=== PATIENT | male | born 1955 | race Caucasian/White ===

== ENCOUNTER 2024-08-30 06:17 | Day surgery (SDC) | payer MEDICARE, BC, SELFPAY | END 2024-08-30 11:04 | disposition home or self-care (01) | LOC: GI 06:17 | PROVIDERS: ATTENDING PHYSICIAN Internal Medicine Gastroenterology | DX: Z12.11 Encounter for screening for malignant neoplasm of colon (principal); K51.00 Ulcerative (chronic) pancolitis without complications; Z98.0 Intestinal bypass and anastomosis status | CPT/HCPCS: 45331; 88305 ==

== ENCOUNTER 2025-01-22 18:03 | Inpatient (IN) | payer MEDICARE, BC, SELFPAY ==
[2025-01-22 15:32] VITALS: BP 131/76
[2025-01-22 15:56] LABS: % Basophils 0.8 % (0-2); % Eosinophils 17.4 % (0-6); % Immature Granulocytes 0.8 % (0-0.5); % Lymphocytes 20.4 % (20.5-51.1); % Monocytes 15.1 % (1.7-9.3); % Neutrophils 45.5 % (42.2-75.2); Absolute Basophils 0.1 10^3/uL (0-0.2); Absolute Eosinophils 1.3 10^3/uL (0-0.7); Absolute Immature Granulocytes 0.1 10^3/uL (0-0.05); Absolute Lymphocytes 1.6 10^3/uL (1.2-3.4); Absolute Monocytes 1.2 10^3/uL (0.1-0.6); Absolute Neutrophils 3.5 10^3/uL (1.4-6.5); Hematocrit 37.1 % (39.0-52.0); Hemoglobin 12.4 g/dL (13.0-18.0); Mean Corp Hgb Conc. 33.4 g/dL (33.0-37.0); Mean Corpuscular Hgb 30.1 pg (27.0-31.0); Mean Platelet Volume 9.5 fL (7.4-10.4); Nucleated Red Blood Cells % 0 % (-); Platelet Count 193 10^3/uL (130-400); Red Blood Cell Count 4.12 10^6/uL (4.70-6.10); Red Cell Dist. Width 14.8 % (11.5-14.5); White Blood Cell Count 7.7 10^3/uL (4.8-10.8)
[2025-01-22 16:14] LABS: Albumin 3.3 g/dl (3.5-5.0); Alkaline Phosphatase 147 U/L (38-126); Blood Urea Nitrogen 31 mg/dl (9-20); Calcium 9.1 mg/dl (8.4-10.2); Carbon Dioxide 23 mmol/L (22-30); Chloride 108 mmol/L (98-107); Glucose 93 mg/dl (70-99); Lipase 182 U/L (23-300); Potassium 4.1 mmol/L (3.5-5.1); Sodium 138 mmol/L (135-145); Total Bilirubin 2.7 mg/dl (0.2-1.3); Total Protein 7.8 g/dl (6.3-8.2); eGFR 55.09
[2025-01-22 16:27] LABS: ALT (SGPT) 1223 U/L (0-50); AST (SGOT) 1004 U/L (17-59)
--- NOTE | 2025-01-22 16:47 | W.PN.UPDATE ---
Update Note
Progress Note Update
This note serves as an addendum to the H&P by author's agent EMILIE Yael LANCASTER
HPI
69M HX chronic abn LFTS, HX chr Levofloxacin for pouchitis, HX UC with internal J Pouch s/p colectomy , Lichen planus seen in by GI for abnomal LFTS
- worsening abnormal LFTs trend
- most recently abdominal bloating and heart burn but resolved
- no new medication except prolia started last fall
- denied any acetaminophen
- denied ETOH
- for further w/u
Vital Signs
Temp Pulse Resp BP Pulse Ox
98.3 F 63 16 131/76 98
01/22/25 15:32 01/22/25 15:32 01/22/25 15:32 01/22/25 15:32 01/22/25 15:32
PE
Gen: Not toxic , appprpriate
HEENT: acidemic sclera
Neck: supple
Lungs:CTA
Cor: RRR S1 S2
Abdomen: soft abdomen
DISTRIBUTION DESIGNER: AAO3
MS: no edema
Psych: normal mood and affect
Data
Labs
01/22/25
15:46
WBC 7.7
Hgb 12.4 L
MCV 90.0
Chloride 108 H
BUN 31 H
Creatinine 1.4 H
eGFR 55.09
Total Bilirubin 2.7 H
ALT 1223 H*
Alkaline Phosphatase 147 H
Lipase 182
NO PRIOR hospitalist admission:
ASSESSMENT & PLAN
Significant progressive worsening of painless hepatocellular pattern abn LFTs with new interval elevated TB
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
- Unclear etiology and DDXs such as DILI, autoimmune hepatitis ,PVT, acute viral hepatitis are soft
- Prothrombin time
- Viral Hep panel
- Mitochondrial M2 Ab, IgG
- Soluble Liver Ag
- close observation of LFTs and INR
- Complete abdomen US with Doppler study
- MRI of liver
- GI consulted
- HX chr Levofloxacin for 20 yrs for pouchitis
- HX UC with internal J Pouch s/p total colectomy
- cont. LVQ for now and observe LFTs
Essential HTN
- cont. Valsartan- HCTZ to hold if SBP < 120
- c/w Metoprolol
DVT Px: SCD
Code: full code
IP MS
--- NOTE | 2025-01-22 16:48 | ED.GENMED ---
History of Present Illness
<Addis Plummer PA-C - Last Filed: 01/23/25 03:12>
General
Chief Complaint: Abnormal Lab Value
Source: patient
Exam Limitations: none
Time Seen by Provider: 01/22/25 16:35
Nursing documentation reviewed up to this point in time: agreed with
History of Present Illness
History of Present Illness:
Patient is a 69-year-old male with history hypertension, UC status post J-pouch presenting to the emergency department for evaluation of elevated liver function test found outpatient. Patient states that he initially had lab work drawn with his
annual physical back in October which showed very mild elevation his LFTs. These values were trended over the past 2 months with his GI doctor, Dr. Benitez and have been continuing to elevate. Patient was sent to the emergency department from GI
for admission and further workup.
Patient reports feeling increasing fatigue over the past few months and has had blunger stools over the past few weeks. Patient denies any recent fever, chills, abdominal pain, nausea, vomiting or anorexia. No chest pain or shortness of breath.
Patient denies any recent travel. Patient denies any alcohol use.
Review of Systems
<Addis Plummer PA-C - Last Filed: 01/23/25 03:12>
Review of Systems
Allergies reviewed?: Yes
All Other Systems: ROS reviewed and negative except as documented in HPI and ROS
Phy Exam
<Addis Plummer PA-C - Last Filed: 01/23/25 03:12>
Physical Exam
Physical Exam:
Vitals: Patient's vital signs are stable. Afebrile
General: Patient is well appearing, no acute distress. Nontoxic appearing
Skin: Warm and dry, no rashes or lesions
Head: Normocephalic, atraumatic
Eyes: Sclera nonicteric.
Throat: Protecting airway
Neck: Normal ROM, no cervical spine tenderness, no meningismus
Cardiac: Regular rate and rhythm, no murmurs.
Pulm: Lungs clear bbilaterally.
.
Abdomen: Abdomen soft and nontender. No palpable masses. Negative Landon sign. No ecchymosis or rash.
Extremities: No evidence of cyanosis or edema
Neuro: AAOx3. Grossly intact
Psychiatric: Normal affect.
Course
<Addis Plummer PA-C - Last Filed: 01/23/25 03:12>
Orders/Labs/Results
Orders:
Orders
01/22/25 Breakfast
Regular
At Your Request: Limited Participation
Does patient need a safe tray?: No
01/22/25 15:46
Complete Blood Count/With Diff Urgent
Comprehensive Metabolic Panel Urgent
Lipase Urgent
01/22/25 16:34
MR Abdomen W/o & W Contrast Routine
Comment:
Reason For Exam: do with MRCP, elevated LFT's
Recent pill cam endoscopy?: No
01/22/25 16:41
GASTROINTESTINAL CONSULT Urgent
Consulting Provider: Haider Dodd
Was physician already notified: Yes
01/22/25 17:12
Admit/Transfer Patient As Directed
Co-Sign Provider:
Level of Care: Inpatient admission
Assign to:: Medical/Surgical
Physician / Group: Rogelio
Diagnosis: Hepatitis
Reason for Hospitalization: Hepatitis Work-up
Expected length of stay greater than two midnights?: Yes
ELOS- Estimated Length of Stay in days: 3
I certify the patient meets the requirements for IP care: Yes
PRN Pain Medication Management As Directed
May give lesser potent ordered pain med per pt: Yes
preference::
Protocol:: Medication orders for pain may be administered in a
manner that supports deferring to patient preference
when the pt is:
- Requesting an ordered lesser potent pain medication.
Least to most potent pain medications are defined
as: acetaminophen < NSAID < tramadol < opioids
(morphine, oxycodone, hydromorphone).
- Requesting a lesser dose of the same medication IF
ORDERED.
- Requesting a less intrusive route of administration
if both routes are prescribed by the provider (PO <
IV).
01/22/25 17:14
Code Status As Directed
Resuscitation Status: Full Code
01/22/25 17:26
INR [Prothrombin Time] Routine
01/22/25 19:14
Activity As Directed
Activity Level: Out of Bed-Early Mobility
With Assistance
Pneumatic Compression Sleeves As Directed
Type: Knee high
Vital Signs As Directed
Frequency: Per unit guidelines
DX Deep Vein Thrombosis Video Routine
01/22/25 20:00
Metoprolol [Lopressor] 25 mg PO BID
01/23/25 Breakfast
NPO
Allow oral meds: Yes
Allow clear liquids: Sips of Clears
NPO with Ice Chips: Yes
Comment: NPO for MRI then resume prior diet
HILTON, IgG Reflex to HEp-2 [S] IN AM
Complete Blood Count/No Diff IN AM
Comprehensive Metabolic Panel IN AM
Hepatitis A Antibody, Total IN AM
Hepatitis A IgM Antibody IN AM
Hepatitis B Core Ab, IgM IN AM
Hepatitis B Core Ab, Total IN AM
Hepatitis B Surface Antibody IN AM
Hepatitis B Surface Antigen IN AM
Hepatitis C Antibody IN AM
Liver-Kidney Microsome Ab-IgG [S] IN AM
Mitochondrial M2 Ab, IgG [S] IN AM
Prothrombin Time IN AM
Smooth Muscle Antibody, IgG [S] IN AM
Soluble Liver Antigen Ab [S] IN AM
01/23/25 08:00
LevoFLOXacin [Levaquin] 500 mg PO DAILY
Valsartan [Diovan] 160 mg PO DAILY
US Abd W Abd Doppler Routine
Comment: Doppler hepatic veins/portal vein/hepatic artery
Reason For Exam: Liver Disease , NPO AFTER MIDNIGHT
Abnormal Lab Results
01/22/25 01/22/25
15:46 17:26
RBC 4.12 L 10^6/uL
(4.70-6.10)
Hgb 12.4 L g/dL
(13.0-18.0)
Hct 37.1 L %
(39.0-52.0)
RDW 14.8 H %
(11.5-14.5)
Abs Immat Gran (auto) 0.1 H 10^3/uL
(0-0.05)
Absolute Monos (auto) 1.2 H 10^3/uL
(0.1-0.6)
Absolute Eos (auto) 1.3 H 10^3/uL
(0-0.7)
Immature Gran % 0.8 H %
(0-0.5)
Lymphocytes % 20.4 L %
(20.5-51.1)
Monocytes % 15.1 H %
(1.7-9.3)
Eosinophils % 17.4 H %
(0-6)
PT 16.9 H Sec
(11.4-14.6)
Chloride 108 H mmol/L
(98-107)
BUN 31 H mg/dl
(9-20)
Creatinine 1.4 H mg/dL
(0.7-1.3)
Total Bilirubin 2.7 H mg/dl
(0.2-1.3)
AST 1004 H* U/L
(17-59)
ALT 1223 H* U/L
(0-50)
Alkaline Phosphatase 147 H U/L
(38-126)
Albumin 3.3 L g/dl
(3.5-5.0)
01/22/25 15:46
01/22/25 15:46
Vital Signs
Initial and Last Documented VS:
Initial Vital Signs
Temp Pulse Resp BP Pulse Ox
98.3 F 63 16 131/76 98
01/22/25 15:32 01/22/25 15:32 01/22/25 15:32 01/22/25 15:32 01/22/25 15:32
Last Documented Vital Signs
Temp Pulse Resp BP Pulse Ox
98.2 F 64 16 116/64 96
01/22/25 23:45 01/22/25 23:45 01/22/25 23:45 01/22/25 23:45 01/22/25 23:45
<Joe Gonzalez MD - Last Filed: 01/22/25 17:46>
Orders/Labs/Results
Orders:
Orders
01/22/25 Breakfast
Regular
At Your Request: Limited Participation
Does patient need a safe tray?: No
01/22/25 15:46
Complete Blood Count/With Diff Urgent
Comprehensive Metabolic Panel Urgent
Lipase Urgent
01/22/25 16:34
MR Abdomen W/o & W Contrast Routine
Comment:
Reason For Exam: do with MRCP, elevated LFT's
Recent pill cam endoscopy?: No
01/22/25 16:41
GASTROINTESTINAL CONSULT Urgent
Consulting Provider: Haider Dodd
Was physician already notified: Yes
01/22/25 17:12
Admit/Transfer Patient As Directed
Co-Sign Provider:
Level of Care: Inpatient admission
Assign to:: Medical/Surgical
Physician / Group: Rogelio
Diagnosis: Hepatitis
Reason for Hospitalization: Hepatitis Work-up
Expected length of stay greater than two midnights?: Yes
ELOS- Estimated Length of Stay in days: 3
I certify the patient meets the requirements for IP care: Yes
PRN Pain Medication Management As Directed
May give lesser potent ordered pain med per pt: Yes
preference::
Protocol:: Medication orders for pain may be administered in a
manner that supports deferring to patient preference
when the pt is:
- Requesting an ordered lesser potent pain medication.
Least to most potent pain medications are defined
as: acetaminophen < NSAID < tramadol < opioids
(morphine, oxycodone, hydromorphone).
- Requesting a lesser dose of the same medication IF
ORDERED.
- Requesting a less intrusive route of administration
if both routes are prescribed by the provider (PO <
IV).
01/22/25 17:14
Code Status As Directed
Resuscitation Status: Full Code
01/22/25 17:26
INR [Prothrombin Time] Routine
01/22/25 19:14
Activity As Directed
Activity Level: Out of Bed-Early Mobility
With Assistance
Pneumatic Compression Sleeves As Directed
Type: Knee high
Vital Signs As Directed
Frequency: Per unit guidelines
DX Deep Vein Thrombosis Video Routine
01/22/25 20:00
Metoprolol [Lopressor] 25 mg PO BID
01/23/25 Breakfast
NPO
Allow oral meds: Yes
Allow clear liquids: Sips of Clears
NPO with Ice Chips: Yes
Comment: NPO for MRI then resume prior diet
HILTON, IgG Reflex to HEp-2 [S] IN AM
Complete Blood Count/No Diff IN AM
Comprehensive Metabolic Panel IN AM
Hepatitis A Antibody, Total IN AM
Hepatitis A IgM Antibody IN AM
Hepatitis B Core Ab, IgM IN AM
Hepatitis B Core Ab, Total IN AM
Hepatitis B Surface Antibody IN AM
Hepatitis B Surface Antigen IN AM
Hepatitis C Antibody IN AM
Liver-Kidney Microsome Ab-IgG [S] IN AM
Mitochondrial M2 Ab, IgG [S] IN AM
Prothrombin Time IN AM
Smooth Muscle Antibody, IgG [S] IN AM
Soluble Liver Antigen Ab [S] IN AM
01/23/25 08:00
LevoFLOXacin [Levaquin] 500 mg PO DAILY
Valsartan [Diovan] 160 mg PO DAILY
US Abd W Abd Doppler Routine
Comment: Doppler hepatic veins/portal vein/hepatic artery
Reason For Exam: Liver Disease , NPO AFTER MIDNIGHT
Abnormal Lab Results
01/22/25 01/22/25
15:46 17:26
RBC 4.12 L 10^6/uL
(4.70-6.10)
Hgb 12.4 L g/dL
(13.0-18.0)
Hct 37.1 L %
(39.0-52.0)
RDW 14.8 H %
(11.5-14.5)
Abs Immat Gran (auto) 0.1 H 10^3/uL
(0-0.05)
Absolute Monos (auto) 1.2 H 10^3/uL
(0.1-0.6)
Absolute Eos (auto) 1.3 H 10^3/uL
(0-0.7)
Immature Gran % 0.8 H %
(0-0.5)
Lymphocytes % 20.4 L %
(20.5-51.1)
Monocytes % 15.1 H %
(1.7-9.3)
Eosinophils % 17.4 H %
(0-6)
PT 16.9 H Sec
(11.4-14.6)
Chloride 108 H mmol/L
(98-107)
BUN 31 H mg/dl
(9-20)
Creatinine 1.4 H mg/dL
(0.7-1.3)
Total Bilirubin 2.7 H mg/dl
(0.2-1.3)
AST 1004 H* U/L
(17-59)
ALT 1223 H* U/L
(0-50)
Alkaline Phosphatase 147 H U/L
(38-126)
Albumin 3.3 L g/dl
(3.5-5.0)
01/22/25 15:46
01/22/25 15:46
Vital Signs
Initial and Last Documented VS:
Initial Vital Signs
Temp Pulse Resp BP Pulse Ox
98.3 F 63 16 131/76 98
01/22/25 15:32 01/22/25 15:32 01/22/25 15:32 01/22/25 15:32 01/22/25 15:32
Last Documented Vital Signs
Temp Pulse Resp BP Pulse Ox
98.2 F 64 16 116/64 96
01/22/25 23:45 01/22/25 23:45 01/22/25 23:45 01/22/25 23:45 01/22/25 23:45
<Addis Plummer PA-C - Last Filed: 01/23/25 03:12>
MDM/Problems Addressed
Differential Diagnosis Includes:
Not limited to: viral infection, hepatitis, liver cirrhosis, obstructive process, medication side effect, malignancy, etc
MDM/Problems Addressed:
69-year-old male presenting from . office for admission given gradually increasing LFTs. Apparently found incidentally during annual physical in October and have been steadily increasing sense. Patient asymptomatic and denies any abdominal pain,
anorexia, vomiting/nausea, fevers or diarrhea. Vitals and physical exam as above. Basic labs were sent in triage. CBC unremarkable. Chemistry shows significant transaminitis with AST of 1004 and ALT of 1223. Total bilirubin elevated to 2.5. Alkaline
phosphatase 147. Lipase normal. Patient asymptomatic in no apparent distress. [facility] has ordered additional labwork including hepatitis panel, abdominal ultrasound and MRI. Patient will be admitted to the hospital for further
evaluation/management given concern of acute hepatic failure. Patient accepted to the hospitalist service in stable condition.
Chronic conditions affecting care:
HTN, UC w/ J pouch
Acute Exacerbation and/or Progression of Chronic Illness:
N/A
<Addis Plummer PA-C - Last Filed: 01/23/25 03:12>
*Pulse Oximetry
Patient hypoxic: no
*EKG
Interpreted by ED Provider?: NA
*Information Operator Interpretation
Rate: Information Operator- N/A
*Critical Care Note
Total Time (30-74mins, 75-104mins- exclusive of procedures): Not Applicable
<Addis Plummer PA-C - Last Filed: 01/23/25 03:12>
Patient Management
Discussion with other providers: Hospitalist and Lead Recoverer (Case discussed w/ gastroenterology)
Escalation/DeEscalation of care consider admission/obs:
Admit for GI consult and further workup
ED Attending Note
<Addis Plummer PA-C - Last Filed: 01/23/25 03:12>
-
Portions of this chart may have been created with voice recognition software.� Occasional wrong word or��sound alike� substitutions may have occurred due to the inherent limitations of voice recognition software.
<Joe Gonzalez MD - Last Filed: 01/22/25 17:46>
ED Attending Note
I performed the substantive portion of visit, reviewed & personally made and approve the management plan that is documented in note by myself or EMILIE.: Yes
ED Attending Note:
69-year-old male who was sent in by GI for admission�significant abrupt increase in transaminases and clinical concern for hepatitis and liver failure. GI consulted and placed orders. Discussed with hospitalist for admission.
Discharge Plan
Departure
Patient Disposition: Admit
Date of Disposition: 01/22/25
Time of Disposition: 16:43
Admit to doctor: Rogelio
Presentation/result/management discussed w/ accepting MD/DO: Hospitalist
Discharge Problem:
Hepatitis
Interventions
Interventions:
*Risk Screen - Suicide Last Done: 01/22/25 17:08
*Neglect/Abuse Screening Last Done: 01/22/25 17:08
*ED- Fall Risk Assessment Last Done: 01/22/25 17:08
*ED COVID-19 Vaccine History Last Done: 01/22/25 17:08
*Nursing Disposition Last Done: 01/22/25 19:10
Discharge Date and Time
Discharge Date/Time: 01/22/25 19:11
--- NOTE | 2025-01-22 17:02 | HPS.HSE ---
Family Physician
-
Family Physician: Elpidio Vela MD
Chief Complaint
-
Abnormal LFTs
History of Present Illness
Patient is a 69 y/o male past medical history of ulcerative colitis s/p colectomy with chronic pouchitis on levofloxacin, and hypertension who presents with abnormal LFTs. Patient had routine blood work back in October for his routine physical
which revealed mildly elevated LFTs. He had follow up labs about a month later which showed the LFTs to be slightly more elevated. Earlier this week patient had LFTs again which were markedly elevated. He saw GI today who referred him to
emergency department with concern for worsening hepatitis and possible acute liver failure. Patient denies any complaints at the present time.
Medical History
Past Medical History
Past Medical History: Reports Other
Additional Past Medical History:
Ulcerative Colitis s/p Colectomy with J-Pouch
Chronic Pouchitis
Essential Hypertension
Past Surgical History: Reports Other
Additional Past Surgical History:
Colectomy with J Pouch
Social History
Tobacco: Non-smoker
Alcohol: None
Personal:
Living: With Family
Family History
Family History: Not pertinent
Allergies / Home Medications
Allergies reflects when Allergies were last updated in [facility].
Home Medications with original date entered in [facility]
Allergy/Medication List:
Allergies
Allergy/AdvReac Type Severity Reaction Status Date / Time
No Known Allergies Allergy Verified 01/22/25 15:37
Home Medications
calcium 500 mg (as carbonate)-vitamin D3 10 mcg (400 unit) tablet (Calcium 500 + D) 1 tab PO DAILY 01/22/25
cyanocobalamin (vitamin B-12) 1,000 mcg tablet 1,000 mcg PO DAILY 01/22/25
levofloxacin 500 mg tablet 500 mg PO DAILY [facility] 01/22/25
metoprolol tartrate 25 mg tablet 25 mg PO BID 01/22/25
therapeutic multivitamin 1 tab PO DAILY 01/22/25
valsartan 160 mg-hydrochlorothiazide 12.5 mg tablet 1 tab PO DAILY 01/22/25
Review of Systems
-
History Source: Patient
A 12 point ROS was completed and negative except as noted: Yes
Constitutional: Denies Fever or Chills
Respiratory: Denies Cough or Trouble Breathing
Cardiac: Denies Chest Pain or Palpitations
Abdomen/GI: Denies Abdominal Pain, Nausea, Vomiting, Diarrhea or Constipated
Physical Exam
Vital Signs
Vital Signs
Temp Pulse Resp BP Pulse Ox
98.3 F 63 16 131/76 98
01/22/25 15:32 01/22/25 15:32 01/22/25 15:32 01/22/25 15:32 01/22/25 15:32
Physical Exam
General: Well Developed, Well Nourished and No Apparent Distress
HEENT: NormoCephalic, Anicteric, Moist mucous membranes and Atraumatic
Respiratory: Clear and Non Labored Respirations; No Wheezes, Rales or Rhonchi
Cardiac: S1/S2 and Regular Rhythm; No Murmur
GI: Soft, Non Tender, Non Distended and Normal Bowel Sounds
Rectal: Deferred by Provider
Musculoskeletal: No Clubbing, No Cyanosis and No Edema
Skin: Warm and Dry; No Rash
Neuro: Awake, Alert, Oriented and Nonfocal/grossly intact
Psych: Calm
Laboratory Results
-
01/22/25 15:46
01/22/25 15:46
Laboratory Results
Total Bilirubin 2.7 mg/dl (0.2-1.3) H 01/22/25 15:46
AST 1004 U/L (17-59) H* 01/22/25 15:46
ALT 1223 U/L (0-50) H* 01/22/25 15:46
Alkaline Phosphatase 147 U/L (38-126) H 01/22/25 15:46
Lipase 182 U/L (23-300) 01/22/25 15:46
Data Reviewed
-
Lab Data: Labs Reviewed by me
Old Records: Reviewed
Impression/Plan
-
Acute Hepatitis
-Consult GI
-Check Abd US with Doppler
-Check Abd MRI / MRCP
-Check Hepatitis Panel
-Trend LFTs
Essential Hypertension
-Continue metoprolol and valsartan with hold parameters
Chronic Pouchitis
-Continue Levaquin - Patient reports he has been on for over 20 years therefore suspect this is not the case of his current hepatitis
DVT proph: SCDs
Code Status: Full Code
[2025-01-22 17:07] VITALS: BMI 30.4
[2025-01-22 17:44] LABS: INR 1.32; PT 16.9 Sec (11.4-14.6)
[2025-01-22 19:31] VITALS: BP 143/70; BMI 30.1
--- NOTE | 2025-01-22 19:45 | PTCARENOTE ---
Received patient from ED via stretcher. Patient ambulated from stretcher to bed independently. AAOx3, no current complaints of pain. Oriented patient to room and placed call kelley within reach.
[2025-01-22] MEDS: LOPRESSOR 25 MG PO (20:02)
[2025-01-22 23:45] VITALS: BP 116/64
--- NOTE | 2025-01-23 06:38 | CON.GI ---
Addendum entered and electronically signed by Haider Dodd MD 01/23/25 13:46:
I saw and examined the patient.
The COMMAND CENTER ANALYST or PA's note was reviewed and I agree with the note.
Comment: 69yo male admitted from GI office for worsening LFTs. He has hx UC/colectomy/J pouch on chronic levaquin. LFTs have been increasing since around November when he rec'd his second dose of Prolia, which was started last May. No other
new meds. No EtOH. Denies abd pain, n/v. Has had some mild fatigue but not severe at all. Feeling better today. Denies change in MS, agrees.
USdoppler and MRI negative
REC:
Transaminases are slightly improved today and INR has been stable
Bili is up slightly from 2.7 to 3.1
At this point, he does not appear to be progressing to fulminant liver failure and LFTs peaked and decreasing
He and his strongly prefer to go home and I feel that is reasonable, provided we get repeat labs tomorrow and repeat in 1 week.
I counselled them to watch for change in MS, fever, n/v, or any other new symptoms and return to ER immediately.
I recommended stopping Prolia as his only new med since this episode. Consider stopping Levaquin next if LFTs not normalized.
Original Note:
Consultation
-
Date/Time Consultation Requested: 01/22/25 1640
Date/Time Consultation Performed: 01/23/25 1050
Requesting Provider: Joe Gonzalez MD
Performing Provider: [place] Basurto, Haider Dodd MD
Reason for Consultation: elevated LFT's
Medical History
Chief Complaint / HPI
History of Present Illness:
Pt is a 69yo with hx ulcerative colitis with colectomy/j pouch in 2001, chronic pouchitis on antibiotics, lichen planus, HTN with office follow up 01/[address] Vela for elevated LFT's. He was noted with mild elevation in October with
progressive rise. He admits to fatigue and recent bloating and GERD. Only new medication was Prolia stated last fall and denies supplement, excessive Tylenol or ETOH use, tattoos. Possible transfusion in 2001 with surgery. US doppler with patent
vasculature increased echogenicity fatty liver, non obstructing stones.
Pt otherwise admit to chronic loose stool 6-8 per day and increased GERD with PPI use. He also noted darker urine. He otherwise denies dysphagia, wt loss, abdominal pain, or rectal bleeding. hx flex sig with fair prep, patent pouch, bx neg,
T bili D bili AST ALT alk phos INR
10/2023 0.2 77 99 93
01/02/25 0.9 0.38 385 489 131 Hep C neg
01/21/25 1.7 1.15 851 1014 173
01/22/25 2.7 1004 1223 147 1.32
prior US did not recall any abnormal finding
Past Medical History
Past Medical History: HTN and Other (ulcerative colitis with prior colectomy and chronic pouchitis on antibiotics, lichen planus )
Past Surgical History: Bowel Resection (colectomy 2001 with J pouch ), Orthopedic (compression fx repair) and Other (wisdom teeth extraction, hernia repair)
Social History
Tobacco: Non-Smoker
Alcohol: None
Drug: None
Personal:
Living: With Family
Employment: Retired
Family History
Family History: Other (son with UC no family hx liver issues )
Allergies / Home Medications
Allergy/AdvReac Type Severity Reaction Status Date / Time
No Known Allergies Allergy Verified 01/22/25 15:37
�Medication �Instructions �Recorded
calcium 500 mg (as 1 tab PO DAILY 01/22/25
carbonate)-vitamin D3 10 mcg (400
unit) tablet (Calcium 500 + D)
cyanocobalamin (vitamin B-12) 1,000 mcg PO DAILY 01/22/25
1,000 mcg tablet
levofloxacin 500 mg tablet 500 mg PO DAILY dough raiser 01/22/25
metoprolol tartrate 25 mg tablet 25 mg PO BID 01/22/25
therapeutic multivitamin 1 tab PO DAILY 01/22/25
valsartan 160 1 tab PO DAILY 01/22/25
mg-hydrochlorothiazide 12.5 mg
tablet
Review of Systems
-
History Source: Patient and Family
Constitutional: Reports Fatigue
EENT: Reports No Symptoms
Respiratory: Reports No Symptoms
Cardiac: Reports No Symptoms
Abdomen/GI: Reports Other (increased GERD )
: Reports Dark Urine
Musculoskeletal: Reports No Symptoms
Skin: Reports No Symptoms
Neurological: Reports Weakness
Endocrine: Reports No Symptoms
Hematologic/Lymphatic: Reports No Symptoms
Vital Signs
Temp Pulse Resp BP Pulse Ox
98.2 F 64 16 116/64 96
01/22/25 23:45 01/22/25 23:45 01/22/25 23:45 01/22/25 23:45 01/22/25 23:45
Physical Exam
Exam
General: Well Developed, Well Nourished and No Apparent Distress
HEENT: Other (mild jaundice )
Respiratory: Clear
Cardiac: Regular Rhythm
GI: Soft, Non Tender and Non Distended
Musculoskeletal: No Clubbing and No Cyanosis
Skin: Warm and Dry
Neuro: Awake, Alert and AO x 3
Psych: Calm
Results
WBC 7.7 10^3/uL (4.8-10.8) 01/22/25 15:46
Hgb 12.4 g/dL (13.0-18.0) L 01/22/25 15:46
Hct 37.1 % (39.0-52.0) L 01/22/25 15:46
MCV 90.0 fL (80.0-94.0) 01/22/25 15:46
Plt Count 193 10^3/uL (130-400) 01/22/25 15:46
Absolute Neuts (auto) 3.5 10^3/uL (1.4-6.5) 01/22/25 15:46
PT 16.9 Sec (11.4-14.6) H 01/22/25 17:26
INR 1.32 01/22/25 17:26
Sodium 138 mmol/L (135-145) 01/22/25 15:46
Potassium 4.1 mmol/L (3.5-5.1) 01/22/25 15:46
Chloride 108 mmol/L (98-107) H 01/22/25 15:46
Carbon Dioxide 23 mmol/L (22-30) 01/22/25 15:46
BUN 31 mg/dl (9-20) H 01/22/25 15:46
Creatinine 1.4 mg/dL (0.7-1.3) H 01/22/25 15:46
Calcium 9.1 mg/dl (8.4-10.2) 01/22/25 15:46
Total Bilirubin 2.7 mg/dl (0.2-1.3) H 01/22/25 15:46
AST 1004 U/L (17-59) H* 01/22/25 15:46
ALT 1223 U/L (0-50) H* 01/22/25 15:46
Alkaline Phosphatase 147 U/L (38-126) H 01/22/25 15:46
Lipase 182 U/L (23-300) 01/22/25 15:46
Diagnostic Image Results:
01/23/25 US doppler
1. Patent hepatic vasculature with appropriate directional flow, as described above.
2. Increased echogenicity in the liver, compatible with underlying hepatocellular disease, which most commonly relates to fatty infiltration of the liver.
2. Subcentimeter nonobstructing bilateral renal calculi.
01/23 MRI pending
Prior GI Procedures:
sigmoidoscopy: 08/2024 - Preparation of the colon was fair.
- Patent ileal pouch-anal anastomosis, characterized
by healthy appearing mucosa.
- The examination was otherwise normal.
- Biopsies were taken with a cold forceps for
histology in the terminal ileum.
Assessment / Plan
-
Pt is a 69yo with hx ulcerative colitis with colectomy/j pouch in 2001, chronic pouchitis on antibiotics, lichen planus, HTN with office follow up 01/[address] Vela for elevated LFT's. He was noted with mild elevation in October with
progressive rise. He admits to fatigue and recent bloating and GERD. Only new medication was Prolia stated last fall and denies supplement, excessive Tylenol or ETOH use, tattoos. Possible transfusion in 2001 with surgery. US doppler with patent
vasculature increased echogenicity fatty liver, non obstructing stones.
T bili D bili AST ALT alk phos INR
10/2023 0.2 77 99 93
01/02/25 0.9 0.38 385 489 131 Hep C neg
01/21/25 1.7 1.15 851 1014 173
01/22/25 2.7 1004 1223 147 1.32
01/23/25 3.1 1.9 988 1068 149 1.26
-increased LFT's over last few months
-NICKI on admission with improvement
-hx UC with colectomy 2001 with J pouch
-chronic pouchitis on chronic Levaquin
other med problems:
-lichen planus
-HTN
PLAN:
etiology of elevated LFT's related to hepatitis (recent hep C neg), autoimmune process, viral etiology, DILI newly added Prolina (rare)/custodial levaquin with( known hx DILI) or developing fulminant liver injury
today LFT's with some trending down AST/ALT and stable INR
trend labs and INR
check autoimmune markers, AMA, hepatitis panel, viral EBV
US doppler as noted
MRI abdomen pending
avoid hepatotoxic medications -- will review continued Levaquin with Dr. Dodd
if LFT's trending in wrong direction without unclear cause may need tertiary/hepatology center eval vs liver biopsy
ok to resume diet as testing completed.
per liver tox
prolia Likelihood scorehttps://www.ncbi.nlm.nih.gov/books/n/livertox/glossary/def-item/glossary.likelihood-score/: E* (unproven but suspected rare cause of clinically apparent liver injury)
levaquin Likelihood scorehttps://www.ncbi.nlm.nih.gov/books/n/livertox/glossary/def-item/glossary.likelihood-score/: A (well established cause of clinically apparent liver injury).
-
-
Thank you for consultation and allowing me to participate in the patient's care. Please call the radiosonde operator GI physician during the after hours with any questions or concerns.
[2025-01-23 06:47] LABS: Hematocrit 32.7 % (39.0-52.0); Hemoglobin 11.3 g/dL (13.0-18.0); Mean Corp Hgb Conc. 34.6 g/dL (33.0-37.0); Mean Corpuscular Hgb 30.5 pg (27.0-31.0); Mean Corpuscular Volume 88.1 fL (80.0-94.0); Mean Platelet Volume 9.7 fL (7.4-10.4); Platelet Count 168 10^3/uL (130-400); Red Blood Cell Count 3.71 10^6/uL (4.70-6.10); Red Cell Dist. Width 14.6 % (11.5-14.5); White Blood Cell Count 6.5 10^3/uL (4.8-10.8)
[2025-01-23 06:56] LABS: INR 1.26; PT 16.3 Sec (11.4-14.6)
[2025-01-23 07:05] VITALS: BP 132/61
[2025-01-23 07:23] LABS: Alkaline Phosphatase 149 U/L (38-126); Blood Urea Nitrogen 27 mg/dl (9-20); Calcium 8.8 mg/dl (8.4-10.2); Carbon Dioxide 20 mmol/L (22-30); Chloride 113 mmol/L (98-107); Direct Bilirubin 1.9 mg/dl (0.0-0.4); Estimated Creatinine Clearance 64 ml/min; Glucose 87 mg/dl (70-99); Potassium 4.3 mmol/L (3.5-5.1); Sodium 139 mmol/L (135-145); Total Bilirubin 3.1 mg/dl (0.2-1.3); Total Protein 6.6 g/dl (6.3-8.2); eGFR > 60.00
[2025-01-23 07:31] LABS: ALT (SGPT) 1068 U/L (0-50); AST (SGOT) 988 U/L (17-59)
[2025-01-23] MEDS: LOPRESSOR 25 MG PO (11:11)
[2025-01-23] MEDS: LEVAQUIN 500 MG PO (11:12)
--- NOTE | 2025-01-23 11:16 | W.PN.HOSP.TC ---
Addendum entered and electronically signed by Migel Rasmussen MD 01/23/25 13:42:
Case discussed with Dr. Dodd and he has cleared the pt for discharge with close outpt follow up.
Total time spent on d/c = 33 min. This included today's physical exam, progress note, review of laboratory and diagnostic data, preparation of discharge documents and prescriptions, and discussions about the pt's hospital course and discharge plan
with the patient and other medical record clerk involved in the patient's care.
Original Note:
Today's Communication/Plan
-
see plan
Assessment / Plan
Assessment / Plan
Gen: NAD, AAOx3.
Eyes: EOMI, PERRLA, trace scleral icterus.
Neck: supple.
CV: RRR, +S1/S2, no m/r/g.
Resp: CTAB, no rales, wheezes, or rhonchi.
Abd: +BS, soft, NT, ND
Skin: No rashes.
Neuro: CN 2-12 intact, non-focal.
Psych: Normal mood and affect.
Abd MRI: Normal size liver. Parenchymal signal intensity and enhancement within normal limits. No evidence of fatty infiltration. No intrahepatic space-occupying lesion. No biliary ductal dilatation. Nonspecific upper abdominal adenopathy with
prominent lymph node in the portacaval space. Mild adenopathy in the iram hepatis and celiac axis. Trace ascites, some which appears somewhat loculated along the liver surface.
Abd U/S with doppler:
1. Patent hepatic vasculature with appropriate directional flow, as described above.
2. Increased echogenicity in the liver, compatible with underlying hepatocellular disease, which most commonly relates to fatty infiltration of the liver.
2. Subcentimeter nonobstructing bilateral renal calculi.
Acute Hepatitis:
-Hepatocellular injury, LFTs not significantly changed from yesterday. Trend LFTs
-Consult GI
-imaging above, specifically abdominal MRI shows a normal-sized liver with parenchymal signal intensity and enhancement within normal limits. No biliary ductal dilatation.
-Serological workup pending including acute viral hepatitis panel, EBV, HILTON, antimitochondrial antibody, soluble liver antigen antibody, F-actin antibody, liver/kidney microsomal antibody
Essential Hypertension
-Continue metoprolol and valsartan with hold parameters
Chronic Pouchitis
-Continue Levaquin - Patient reports he has been on for over 20 years therefore suspect this is not the case of his current hepatitis
FULL/SCDs
Anticipated Discharge: Within 24 hours
Subjective/Interval History
-
Date of Service: January 23, 2025
No acute complaints.
Objective Data
-
Labs:
Laboratory Results
01/23/25
06:32
WBC 6.5
Hgb 11.3 L
Hct 32.7 L
Plt Count 168
PT 16.3 H
INR 1.26
Sodium 139
Potassium 4.3
Chloride 113 H
Carbon Dioxide 20 L
BUN 27 H
Creatinine 1.2
Glucose 87
Calcium 8.8
Total Bilirubin 3.1 H
AST 988 H*
ALT 1068 H*
Alkaline Phosphatase 149 H
Vital Signs:
Vital Signs
Temp Pulse Resp BP Pulse Ox
97.6 F 69 16 111/58 97
01/23/25 07:05 01/23/25 11:11 01/23/25 07:05 01/23/25 11:11 01/23/25 07:05
I&O
01/22/25 01/23/25 01/24/25
06:59 06:59 06:59
Intake Total 240 / 240
Balance 240 / 240
--- NOTE | 2025-01-23 13:42 | W.DCSUMMARY ---
Discharge Summary
Discharge Data
Date of Admission: 01/22/25
Date of Discharge: 01/23/25
-
Pending Results: Yes
Additional Pending Results:
acute viral hepatitis panel, EBV, HILTON, antimitochondrial antibody, soluble liver antigen antibody, F-actin antibody, liver/kidney microsomal antibody
Hospital Course
Primary diagnoses:
Elevated liver function tests
Secondary diagnoses:
Essential hypertension
Chronic pouchitis
Consultants:
Gastroenterology
Imaging:
Abd MRI: Normal size liver. Parenchymal signal intensity and enhancement within normal limits. No evidence of fatty infiltration. No intrahepatic space-occupying lesion. No biliary ductal dilatation. Nonspecific upper abdominal adenopathy with
prominent lymph node in the portacaval space. Mild adenopathy in the iram hepatis and celiac axis. Trace ascites, some which appears somewhat loculated along the liver surface.
Abd U/S with doppler:
1. Patent hepatic vasculature with appropriate directional flow, as described above.
2. Increased echogenicity in the liver, compatible with underlying hepatocellular disease, which most commonly relates to fatty infiltration of the liver.
2. Subcentimeter nonobstructing bilateral renal calculi.
Hospital course: 69-year-old male who presented yesterday with a chief complaint of abnormal LFTs on routine outpatient blood work as outlined in the H&P done on admission. Patient had no acute complaints and was hemodynamically stable. His AST
was 1004 and then 988, ALT was 1223 and 1068, total bilirubin was 2.7 at 3.1, direct bilirubin was 1.9, alkaline phosphatase was 149. Multiple serologies for acute hepatitis were ordered and are pending at this time as above (including acute viral
hepatitis panel, EBV, HILTON, antimitochondrial antibody, soluble liver antigen antibody, F-actin antibody, liver/kidney microsomal antibody). Imaging above and unremarkable. The patient was cleared for discharge by Dr. Dodd with close outpatient
follow-up.
Discharge Plan
-
Patient Disposition: Home (Routine Discharge)
Discharge Diagnosis/Procedures: Elevated LFTs
Condition: Good
Diet: No restrictions
Activity: As tolerated
Driving Restrictions: As prior to admission
Bathing Restrictions: None
Blood Work: CBC, LFT, INR tomorrow and in 1 week, prescription from GI
Activity Restrictions/Additional Instructions:
Stop Prolia
Referrals:
Elpidio Vela MD [Family Provider] - in one to two weeks
Prescriptions:
Continued
valsartan-hydrochlorothiazide 160-12.5 mg tablet
1 tab PO DAILY
levofloxacin 500 mg Tablet
500 mg PO DAILY
metoprolol tartrate 25 mg Tablet
25 mg PO BID
calcium carbonate-vitamin D3 [Calcium 500 + D] 500 mg-10 mcg (400 unit) Tablet
1 tab PO DAILY
cyanocobalamin (vitamin B-12) 1,000 mcg Tablet
1,000 mcg PO DAILY
therapeutic multivitamin Tablet
1 tab PO DAILY
Discharge Orders:
Discharge Patient (As Directed); Ordered 01/23/25
Ordered By: Migel Rasmussen
Discharge Date and Time
Print Language: MALAY
[2025-01-23 14:49] LABS: Hepatitis B Surface Antigen Negative (Negative)
[2025-01-23 15:06] VITALS: BP 102/58
[2025-01-23 15:06] LABS: Hepatitis A Antibody, Total Negative (Negative); Hepatitis B Core Ab, Total Negative (Negative); Hepatitis B Surface Antibody Negative; Hepatitis C Antibody Negative (Negative)
[2025-01-25 05:23] LABS: ANA, IgG Reflex to HEp-2 Detected (None Detected)
[2025-01-25 07:28] LABS: EBV-EA (D) Ab IgG >150.0 U/mL (0.0-10.9); EBV-NA IgG >600.0 U/mL (0.0-21.9); EBV-VCA IgM Antibodies <10.0 U/mL (0.0-43.9)
== END 2025-01-23 17:21 | disposition home or self-care (01) | DRG 948 ==
LOC: 4 EAST ACU 18:03
PROVIDERS: Nurse Practitioner Adult Health; ADMITTING PHYSICIAN Internal Medicine; ATTENDING PHYSICIAN Internal Medicine; CONSULT PHYSICIAN Specialist; EMERGENCY PHYSICIAN Emergency Medicine; FAMILY PHYSICIAN Internal Medicine Gastroenterology
DX: R79.89 Other specified abnormal findings of blood chemistry (principal); K91.850 Pouchitis; K51.90 Ulcerative colitis, unspecified, without complications; N17.9 Acute kidney failure, unspecified; Z90.49 Acquired absence of other specified parts of digestive tract; I10 Essential (primary) hypertension; Z79.899 Other long term (current) drug therapy; K76.0 Fatty (change of) liver, not elsewhere classified; K21.9 Gastro-esophageal reflux disease without esophagitis; N20.0 Calculus of kidney; L43.9 Lichen planus, unspecified
CPT/HCPCS: 74183; 76700; 80053; 82248; 83516; 83690; 85025; 85027; 85610; 86015; 86038; 86376; 86381; 86663; 86664; 86665; 86704; 86706; 86708; 86803; 87340; 93975; 99285; A9575

== ENCOUNTER → 2025-06-26 08:45 | Outpatient (REF) | payer MEDICARE, BC, SELFPAY | LOC: RST 08:45 | PROVIDERS: ATTENDING PHYSICIAN Internal Medicine Gastroenterology; FAMILY PHYSICIAN Internal Medicine | DX: R13.12 Dysphagia, oropharyngeal phase (principal) | CPT/HCPCS: 74230; 92611 ==

== ENCOUNTER → 2025-07-22 14:15 | Outpatient (REF) | payer MEDICARE, BC, SELFPAY | LOC: HWRAD 14:15 | PROVIDERS: ATTENDING PHYSICIAN Internal Medicine Nephrology; FAMILY PHYSICIAN Internal Medicine | DX: N17.9 Acute kidney failure, unspecified (principal) | CPT/HCPCS: 76770 ==